=== PATIENT | female | born 1990 | race Caucasian/White ===

== ENCOUNTER 2017-08-13 18:08 | Emergency (ER) | payer BC ==
[~2017-08-13] VITALS: Ht 165.1 cm; Wt 56.7 kg
--- NOTE | 2017-08-13 18:44 | NUR ---
DR OBRIEN AT THE BEDSIDE FOR MSE.
[2017-08-13] MEDS ORDERED: HYDROCODONE/APAP 5-325MG TABLET PO ONE (19:00)
[2017-08-13] MEDS ORDERED: HYDROCODONE/APAP 5-325MG TABLET ONE (19:16)
[2017-08-13 20:10] VITALS: BP 105/65
--- NOTE | 2017-08-13 20:10 | NUR ---
Patient discharged to home in stable conditon. Written and verbal after care instructions given. Patient verbalizes understanding of instructions. PATIENT LEFT WITH CRUTCHES.
== END 2017-08-13 20:11 | disposition home or self-care (01) ==
LOC: ER 18:08
DX: S06.0X0A Concussion without loss of consciousness, initial encounter (principal); S62.202A Unspecified fracture of first metacarpal bone, left hand, initial encounter for closed fracture; S92.351A Displaced fracture of fifth metatarsal bone, right foot, initial encounter for closed fracture; S20.219A Contusion of unspecified front wall of thorax, initial encounter; S90.112A Contusion of left great toe without damage to nail, initial encounter; F42.9 Obsessive-compulsive disorder, unspecified; V49.9XXA Car occupant (driver) (passenger) injured in unspecified traffic accident, initial encounter; Y93.89 Activity, other specified; Y92.410 Unspecified street and highway as the place of occurrence of the external cause; Y99.8 Other external cause status
CPT/HCPCS: 73130; 73630; 73660; A4663